=== PATIENT | female | born 1945 | race Caucasian/White ===

== ENCOUNTER 2024-05-07 08:00 | Emergency (ER) | payer MEDICARE, OTHER, SELFPAY ==
--- NOTE | 2024-05-07 08:09 | ED.UPPEXIN ---
HPI - Extremity Injury (Upper) General Chief Complaint: Extremity Injury, Upper Stated Complaint: rt wrist pain Time Seen by Provider: 05/07/24 08:08 Source: patient Mode of arrival: ambulatory Limitations: no limitations History of Present Illness HPI narrative: Rubi is a 78-year-old female patient presenting to the clinic today with complaints of right wrist pain that started yesterday. She reports pain is over the radial aspect of the wrist. States she was riding a bike yesterday when she started having pain. No injury. Is unable to tightly close her fist without pain. States it was throbbing all night long and prevented her from sleeping. Rates her pain currently an 8/10. Related Data Home Medications Medication Instructions Recorded Confirmed brimonidine 0.2 % eye drops 1 drp ophthalmic (eye) BID 05/07/24 05/07/24 enalapril maleate 5 mg tablet 5 mg PO BID 05/07/24 05/07/24 latanoprost 0.005 % eye drops 1 drp ophthalmic (eye) DIRECTED 05/07/24 05/07/24 levothyroxine 112 mcg tablet 112 mcg PO DAILY 05/07/24 05/07/24 Allergies Allergy/AdvReac Type Severity Reaction Status Date / Time Sulfa (Sulfonamide Allergy Hives Verified 05/07/24 08:32 Antibiotics) Review of Systems Review of Systems: Pertinent positives per HPI. Patient denies any fever, chills, rash, headache, visual changes, dizziness, cough, runny nose, sore throat, shortness of breath, chest pain, palpitations, nausea, vomiting, diarrhea, constipation, abdominal pain, or any urinary issues. PMFSH Comments At the time of my signature, I reviewed and agree with the nursing past medical, surgical, social, and family history. There is no relevant family history pertinent to the patient complaint. Exam Narrative: General: Well-developed, well nourished, in no apparent distress Head: Normocephalic, atraumatic. Cardio: Regular rate and rhythm, s1 and s2 normal, no murmur appreciated. Resp: Clear to auscultation bilaterally, no rhonchi, rales, wheezing or rubs. Musculoskeletal: No deformity, tender to palpation over the right radial wrist, positive radial Tinel's and positive Lincoln test, grossly normal range of motion, hand grasps weaker in the right hand when compared to left, peripheral pulse strong, no edema, no cyanosis, normal gait and station Course Course Emergency Course: Portions of this record may have been created with voice recognition software. Level of Care: Express Care Visit Vital Signs Vital signs: Vital signs reviewed MDM - Extremity Injury (Upper) MDM Narrative Medical decision making narrative: At the time of visit patient is resting comfortably on the exam table. Patient appears to be nontoxic. Plan: I suspect patient has radial wrist tendinitis versus nerve inflammation. Prescription for Medrol Dosepak was sent to the pharmacy. Recommed wearing a cock up wrist splint x 1 week. Supportive measures were discussed with the patient and they voiced understanding discharge instructions and agrees to treatment plan. Return precautions reviewed Differential Diagnosis Differential diagnosis: Likely sprain and strain of wrist and other (De Quervain tenosynovitis, carpal tunnel syndrome, tendinitis, arthritis) Discharge Plan Discharge Clinical Impression: Right wrist tendonitis Patient Disposition: Home, Self-Care Condition: Stable Instructions: Antibiotic Form, Tendinitis (ED) Additional Instructions: Your likely suffering from de Quervain tenosynovitis versus nerve inflammation due to carpal tunnel. Take Medrol Dosepak as prescribed Wear cock-up wrist splint as discussed May take Tylenol/Motrin that additionally as needed for pain May apply ice to the affected area for 20 minutes at a time-20 minutes on 20 minutes off May apply Aspercreme, blue emu, or lidocaine to the affected area Follow-up with your primary care doctor next week if symptoms persist-may need further evaluation/E
[2024-05-07 08:23] VITALS: BP 185/98; PULSE 56; RESP 16; TEMP 36.7; O2SAT 100
== END 2024-05-07 08:35 | disposition home or self-care (01) ==
PROVIDERS: Emergency Provider Nurse Practitioner Family
DX: M77.8 Other enthesopathies, not elsewhere classified (principal); I10 Essential (primary) hypertension; M19.90 Unspecified osteoarthritis, unspecified site; E03.9 Hypothyroidism, unspecified
CPT/HCPCS: 99213; G0463

== ENCOUNTER 2025-08-22 09:57 | Outpatient (CLI) | payer MEDICARE, OTHER, SELFPAY ==
--- NOTE | ~2025-08-22 | DEXA_ITS ---
Bone Density Report Name: ELSA COTTO Age: 80 Sex: Female Ethnicity: White Date of : 1945 Indication: postmenopausal; screening for osteoporosis; height loss; hysterectomy; Referring Provider: EmilieRosibel Study: Bone densitometry was performed. Exam Date: August 22, 2025 Accession number: [id number] Bone Density: Region BMD T-score Z-score Classification AP Spine(L1-L4) 1.004 -0.4 2.2 Normal Femoral Neck (Left) 0.698 -1.4 0.9 Osteopenia Total Hip (Left) 0.783 -1.3 0.7 Osteopenia Femoral Neck (Right) 0.689 -1.4 0.8 Osteopenia Total Hip (Right) 0.775 -1.4 0.6 Osteopenia Total Hip Mean 0.779 -1.4 0.7 Osteopenia World Health Organization criteria for BMD impression classify patients as: Normal (T-score at or above -1.0), Osteopenia (T-score between -1.0 and -2.5), or Osteoporosis (T-score at or below -2.5). 10-year Fracture Risk(1): Major Osteoporotic Fracture 11% Hip Fracture 2.6% Reported Risk Factors: [place] (), Neck BMD=0.689, BMI=20.7 (1) FRAX(R) Version 3.08. Fracture probability calculated for an untreated patient. Fracture probability may be lower if the patient has received treatment. Clinical Information Provided by Patient: Has used the following medications: Vitamin D Has the following medical conditions: Hysterectomy Patient maximum height was 64 Menopause Age: 36 No regular weight bearing exercise Drinks caffeinated beverages Onset of menses at age 13 Number of children 2 Impression: The patient has low bone mass, based on the Right Total Hip T-score. The patient has an estimated ten-year risk of hip fracture of 2.6% and an estimated ten-year risk of major fracture of 11%, based on the WHO FRAX algorithm. Discussion: BONE DENSITY IS LOW AT ONE OR MORE SKELETAL SITES. This patient's lowest T-score is low at one or more skeletal sites. It meets the World Health Organization's (WHO) criteria for ?low bone mass? (T-score between -1.0 and -2.5). The patient's 10-year risk of fracture as calculated by FRAX is less than the threshold where pharmacological therapy is recommended by the National Osteoporosis Foundation (NOF). However, all treatment decisions require clinical judgment and consideration of individual patient factors, including patient preferences, comorbidities, previous drug use, risk factors not captured in the FRAX model (e.g., frailty, falls, vitamin D deficiency, increased bone turnover, interval significant decline in bone density) and possible under or overestimation of fracture risk by FRAX. The patient should follow a healthful lifestyle (good nutrition with adequate calcium and vitamin D, and appropriate weight-bearing exercise). Follow-Up: Consider repeating this study in 2 to 3 years to reassess this patient's status, or sooner if there is some new clinical indication. Reported by: ROCHELLE on 08/22/2025 10:20:00 AM. Reviewed, dictated and finalized at location A.
== END 2025-08-22 09:58 | disposition home or self-care (01) ==
LOC: MICIMG 09:58
PROVIDERS: PCP Internal Medicine; Visit Provider Internal Medicine
DX: M85.89 Other specified disorders of bone density and structure, multiple sites (principal); Z78.0 Asymptomatic menopausal state
CPT/HCPCS: 77080